=== PATIENT | male | born 1935 | race Caucasian/White ===

== ENCOUNTER → 2017-01-07 | Outpatient (CLI) | payer BC ==
[2017-01-07 17:43] LABS: HEMATOCRIT 33.8 % (42-52); MEAN CELL VOLUME 92.1 fL (80-100); MEAN CORPUSCULAR HEMOGLOBIN 32.4 pg (25-34); MEAN CORPUSCULAR HGB CONC 35.2 g/dl (32-36); MEAN PLATELET VOLUME 9.7 fL (7.4-10.4); PLATELET COUNT 259 K/uL (130-400); RED BLOOD COUNT 3.67 M/uL (4.7-6.1); WHITE BLOOD COUNT 8.68 K/uL (4.8-10.8)
[2017-01-07 17:55] LABS: ALKALINE PHOSPHATASE 65 U/L (45-117); ALT/SGPT 23 U/L (12-78); AST/SGOT 18 U/L (15-37); BLOOD UREA NITROGEN 56 mg/dl (7-18); CALCIUM 9.4 mg/dl (8.5-10.1); CARBON DIOXIDE 25 mmol/L (21-32); CHLORIDE 100 mmol/L (98-107); CHOLESTEROL 121 mg/dl (0-200); FERRITIN 286.8 ng/ml (8.0-388.0); GLUCOSE 128 mg/dl (70-99); SODIUM 135 mmol/L (136-145); TRIGLYCERIDES 158 mg/dl (0-150); VERY LOW DENSITY LIPOPROT CALC 32 mg/dl
[2017-01-07 18:01] LABS: ALB/GLOB RATIO 0.9 (0.9-2); CHOLESTEROL/HDL RATIO 4.2; HDL CHOLESTEROL 29 mg/dl; LDL CHOLESTEROL CALCULATED 60 mg/dl; TOTAL IRON BINDING CAPACITY 308 mcg/dl (250-450)
== END | disposition home or self-care (01) ==
LOC: C.LABPVFM 15:02
PROVIDERS: ATTEND Nurse Practitioner
DX: N18.3 Chronic kidney disease, stage 3 (moderate) (principal); E78.2 Mixed hyperlipidemia; D50.9 Iron deficiency anemia, unspecified; Z79.899 Other long term (current) drug therapy

== ENCOUNTER → 2017-01-14 | Outpatient (CLI) | payer BC ==
--- NOTE | 2017-01-14 08:19 | DIAGNOSTIC IMAGING REPORT ---
RENAL ULTRASOUND HISTORY: Renal insufficiency E11.9 [id number] Chronic kidney disease, stage IV (severe)ULT COMPARISON: None. FINDINGS: Right kidney: Maximum dimension 9.5 cm. No evidence for hydronephrosis. Mild cortical scarring. 2.6 cm mid pole cyst. Mild cortical scarring Left kidney: Maximum dimension 10.9 cm. 2 cm left renal cyst. Mild left renal cortical scarring. Bladder: No bladder wall thickening. The bilateral ureteral jets were identified. IMPRESSION: 1. No evidence for hydronephrosis. 2. Mild renal cortical scarring bilaterally. 3. Small bilateral renal cysts. Electronically signed by: Bernardino Duff M.D. 01/14/2017 8:18 AM Dictated Date/Time: 01/14/2017 8:16 AM
== END | disposition home or self-care (01) ==
LOC: C.ULTR 07:49
PROVIDERS: ATTEND Nurse Practitioner
DX: E11.9 Type 2 diabetes mellitus without complications (principal); N18.4 Chronic kidney disease, stage 4 (severe)

== ENCOUNTER → 2017-01-17 | Outpatient (CLI) | payer BC ==
[2017-01-17 14:35] LABS: HEMATOCRIT 30.6 % (42-52); MEAN CELL VOLUME 91.9 fL (80-100); MEAN CORPUSCULAR HEMOGLOBIN 32.4 pg (25-34); MEAN CORPUSCULAR HGB CONC 35.3 g/dl (32-36); MEAN PLATELET VOLUME 9.1 fL (7.4-10.4); PLATELET COUNT 338 K/uL (130-400); RED BLOOD COUNT 3.33 M/uL (4.7-6.1); WHITE BLOOD COUNT 9.62 K/uL (4.8-10.8)
[2017-01-17 14:43] LABS: URINE APPEARANCE CLEAR (CLEAR); URINE BILIRUBIN NEG (NEG); URINE COLOR YELLOW; URINE NITRITE NEG (NEG); URINE SPECIFIC GRAVITY 1.022 (1.000-1.030); UROBILINOGEN NEG (NEG)
[2017-01-17 14:44] LABS: MANUAL MICROSCOPIC REQUIRED? NO; REVIEW REQ? NO
[2017-01-17 15:12] LABS: URINE PROTIEN/CREAT RATIO 0.1 (0-0.2); URINE TOTAL PROTEIN 25.3 mg/dl (0-11.9)
[2017-01-17 15:14] LABS: BLOOD UREA NITROGEN 49 mg/dl (7-18); BUN/CREATININE RATIO 20.5 (10-20); CALCIUM 9.5 mg/dl (8.5-10.1); CARBON DIOXIDE 25 mmol/L (21-32); CHLORIDE 109 mmol/L (98-107); GLUCOSE 92 mg/dl (70-99); POTASSIUM 3.8 mmol/L (3.5-5.1); SODIUM 141 mmol/L (136-145)
[2017-01-17 15:17] LABS: C-REACTIVE PROTEIN 0.71 mg/dl (0-0.29); PHOSPHORUS 2.8 mg/dl (2.5-4.9)
[2017-01-21 23:31] LABS: ALBUMIN 4.3 G/DL (3.8-4.8); ALBUMIN % 29.25 %; ALPHA-2-GLOBULIN % 16.88 %; BETA GLOBULIN % 21.89 %; CREATININE UR 186 MG/DL (20-370); FREE KAPPA 68.9 MG/L (3.3-19.4); FREE KAPPA/LAMBDA RATIO 1.84 (0.26-1.65); FREE LAMBDA 37.5 MG/L (5.7-26.3); GAMMA GLOBULIN 1.7 G/DL (0.8-1.7); GAMMA GLOBULIN % 30.04 %; TOTAL PROTEIN 7.8 G/DL (6.2-8.3)
== END | disposition home or self-care (01) ==
LOC: C.LAB1850 13:21
PROVIDERS: ATTEND Internal Medicine Nephrology
DX: N17.9 Acute kidney failure, unspecified (principal)

== ENCOUNTER → 2017-01-19 | Outpatient (CLI) | payer BC ==
--- NOTE | 2017-01-19 13:03 | DIAGNOSTIC IMAGING REPORT ---
NUCLEAR GASTRIC EMPTYING STUDY CLINICAL HISTORY: 81-year-old male with history of abdominal pain, early satiety, and diabetes, not currently on pain medicines. COMPARISON STUDY: TECHNIQUE: Following the oral administration of 1.159 mCi of technetium 99m sulfur colloid in egg sandwich and 8 ounces of water, static abdominal images are obtained anteriorly and posteriorly at 0 minutes, 1 hour, 2 hour, and 4 hour time intervals. Gastric emptying was calculated utilizing the geometric mean method. FINDINGS: There is approximately 58% activity remaining at the 1 hour time interval (normal is less than 90%), 18% remaining at the 2 hour time interval (normal is less than 60%), and 0% activity remaining at the 4 hour time interval (normal is less than 10%). IMPRESSION: Findings are consistent with normal gastric emptying. Electronically signed by: Junito Diamond 01/19/2017 1:02 PM Dictated Date/Time: 01/19/2017 12:53 PM
== END | disposition home or self-care (01) ==
LOC: C.NUCL 08:18
PROVIDERS: ATTEND Nurse Practitioner
DX: E11.9 Type 2 diabetes mellitus without complications (principal); R10.9 Unspecified abdominal pain; R68.81 Early satiety

== ENCOUNTER → 2017-01-26 | Outpatient (CLI) | payer BC ==
[2017-01-26 15:01] LABS: PATIENT HEIGHT 180.3 cm
[2017-01-26 18:56] LABS: CREATININE 2.3 mg/dl (0.6-1.4)
== END | disposition home or self-care (01) ==
LOC: C.LABPVFM 14:46
PROVIDERS: ATTEND Nurse Practitioner
DX: E11.9 Type 2 diabetes mellitus without complications (principal); N18.4 Chronic kidney disease, stage 4 (severe)

== ENCOUNTER → 2017-03-02 | Outpatient (CLI) | payer BC ==
[2017-03-02 16:34] LABS: BLOOD UREA NITROGEN 42 mg/dl (7-18); CALCIUM 9.6 mg/dl (8.5-10.1); CARBON DIOXIDE 26 mmol/L (21-32); CHLORIDE 107 mmol/L (98-107); GLUCOSE 85 mg/dl (70-99); PHOSPHORUS 3.4 mg/dl (2.5-4.9); POTASSIUM 4.7 mmol/L (3.5-5.1); SODIUM 138 mmol/L (136-145)
== END | disposition home or self-care (01) ==
LOC: C.LAB1850 14:15
PROVIDERS: ATTEND Internal Medicine Nephrology
DX: N17.9 Acute kidney failure, unspecified (principal)

== ENCOUNTER → 2017-04-29 | Outpatient (CLI) | payer BC ==
[2017-04-29 14:39] LABS: HEMATOCRIT 38.5 % (42-52); MEAN CELL VOLUME 92.8 fL (80-100); MEAN CORPUSCULAR HEMOGLOBIN 31.3 pg (25-34); MEAN CORPUSCULAR HGB CONC 33.8 g/dl (32-36); MEAN PLATELET VOLUME 9.5 fL (7.4-10.4); PLATELET COUNT 292 K/uL (130-400); RED BLOOD COUNT 4.15 M/uL (4.7-6.1); WHITE BLOOD COUNT 7.72 K/uL (4.8-10.8)
[2017-04-29 15:08] LABS: BLOOD UREA NITROGEN 32 mg/dl (7-18); BUN/CREATININE RATIO 15.3 (10-20); CALCIUM 9.5 mg/dl (8.5-10.1); CARBON DIOXIDE 25 mmol/L (21-32); CHLORIDE 106 mmol/L (98-107); GLUCOSE 101 mg/dl (70-99); PHOSPHORUS 3.4 mg/dl (2.5-4.9); POTASSIUM 4.1 mmol/L (3.5-5.1); SODIUM 138 mmol/L (136-145)
== END | disposition home or self-care (01) ==
LOC: C.LAB1850 13:04
PROVIDERS: ATTEND Internal Medicine Nephrology
DX: D63.8 Anemia in other chronic diseases classified elsewhere (principal); N18.9 Chronic kidney disease, unspecified